=== PATIENT | male | born 1985 ===

== ENCOUNTER → 2020-03-17 15:14 | Outpatient (BNVA) | payer OTHER, SELFPAY | PROVIDERS: PCP Physician Assistant; Visit Provider Nurse Practitioner | DX: Z76.89 Persons encountering health services in other specified circumstances (principal) ==

== ENCOUNTER 2021-03-15 08:29 | Outpatient (REF) | payer OTHER, SELFPAY ==
--- NOTE | ~2021-03-15 | XR_ITS ---
EXAMINATION: XR LUMBOSACRAL SPINE CLINICAL INFORMATION: Low back pain and right-sided sciatica COMPARISON: Previous lumbar spine x-ray June 2017 and MRI August 2017 TECHNIQUE: Three views of the lumbosacral spine. FINDINGS: Bone alignment is normal. No fracture or dislocation is seen. There is postsurgical change with disc interspacer. There appears to be ankylosis at the L5-S1 disc space. Disc spaces are otherwise normal. Paraspinal soft tissues are normal. XR/XR lumbar spine 2-3V IMPRESSION: Postsurgical change at L5-S1.
[2021-03-15 09:36] LABS: Estimated Average Glucose 105 mg/dL; Hemoglobin A1c % 5.3 %
[2021-03-15 10:01] LABS: Alanine Aminotransferase 23 U/L (0-40); Albumin Level 4.5 g/dL (3.5-5.0); Alkaline Phosphatase 64 U/L (39-117); Anion Gap 11 (12-20); Aspartate Amino Transferase 21 U/L (5-37); Bilirubin Total 0.4 mg/dL (0.0-1.0); Blood Urea Nitrogen 13 mg/dL (9-16); Calcium 9.6 mg/dL (8.4-10.2); Carbon Dioxide 28 mmol/L (22-29); Chloride 105 mmol/L (96-108); Cholesterol 203 mg/dL; Estimated Glomerular Filt Rate > 60; Glucose Fasting 107 mg/dL (60-99); HDL Cholesterol 24 mg/dL; Sodium 140 mmol/L (135-145); Total Protein 7.1 g/dL (6.5-8.0); Triglycerides 405 mg/dL
[2021-03-15 10:14] LABS: TSH reflex Free T4 1.62 uIU/mL (0.32-4.0)
== END 2021-03-15 08:30 | disposition home or self-care (01) ==
LOC: HO.XRAY 08:29
PROVIDERS: PCP Physician Assistant; Visit Provider Physician Assistant
DX: Z13.220 Encounter for screening for lipoid disorders (principal); Z13.29 Encounter for screening for other suspected endocrine disorder; M51.9 Unspecified thoracic, thoracolumbar and lumbosacral intervertebral disc disorder
CPT/HCPCS: 36415; 72100; 80053; 80061; 83036; 84443

== ENCOUNTER 2022-01-05 11:51 | Outpatient (REF) | payer OTHER, SELFPAY ==
--- NOTE | ~2022-01-05 | XR_ITS ---
EXAMINATION: XR LUMBOSACRAL SPINE WITH OBLIQUES CLINICAL INFORMATION: Status post lumbosacral fusion. COMPARISON: None TECHNIQUE: AP, both oblique, and lateral views of the lumbar spine. Lateral view of the lumbosacral junction. FINDINGS: Vertebral body heights and alignment are normal. There is solid fusion at L5-S1, with intact disc spacer. The remaining disc spaces are well-maintained. There is no acute fracture or spondylolisthesis. The posterior elements are intact. No spondylolysis defect is seen on the oblique views. The paravertebral soft tissues are unremarkable. XR/XR lumbar spine 4V min IMPRESSION: There is well-maintained alignment status-post L5-S1 fusion.
== END 2022-01-05 11:52 | disposition home or self-care (01) ==
LOC: HO.XRAY 11:51
PROVIDERS: PCP Physician Assistant; Visit Provider Physician Assistant
DX: M51.9 Unspecified thoracic, thoracolumbar and lumbosacral intervertebral disc disorder (principal)
CPT/HCPCS: 72110

== ENCOUNTER 2022-09-06 15:45 | Outpatient (REF) | payer OTHER, SELFPAY ==
--- NOTE | ~2022-09-06 | XR_ITS ---
EXAMINATION: XR KNEE, LEFT CLINICAL INFORMATION: M25.562 - Pain in left knee COMPARISON: None available. TECHNIQUE: Standing AP and lateral views of the left knee are obtained. FINDINGS: No fracture, dislocation, or destructive process. Normal bony mineralization. No definite joint narrowing. No subchondral sclerosis or erosive change or chondrocalcinosis. No suprapatellar effusion. Hoffa's fat pad appears normal and the deep infrapatellar recess is preserved. XR/XR knee LT 2V IMPRESSION: Unremarkable left knee.
== END 2022-09-06 15:46 | disposition home or self-care (01) ==
LOC: HO.XRAY 15:45
PROVIDERS: PCP Physician Assistant; Visit Provider Physician Assistant
DX: M25.562 Pain in left knee (principal)
CPT/HCPCS: 73560

== ENCOUNTER 2023-11-20 15:25 | Outpatient (AMB) | payer OTHER, SELFPAY ==
--- NOTE | 2023-11-20 15:27 | A.OFFPC_ITS ---
Vital Signs 11/20/23 15:28 Height 6 ft 1 in Weight 229 lb 6 oz BMI 30.3 BP 106/66 Blood Pressure Location Lt brachial Position Sitting Pulse 78 Pulse Source Pulse Oximeter Pulse Oximetry (%) 97 Oxygen Delivery Method Room Air Intake Visit Reasons: Annual Exam Intake Note: Patient is here today for a physical. Sack Sorter Required: No Accompanied by: Self / Same As Patient Allergies No Known Allergies Allergy (Verified 11/20/23 15:48) Medication List - Last Reconciled 11/20/23 by Francisco Monsivais PA-C nicotine 1 patch transdermal DAILY 14 days Tobacco use date assessed: 11/20/23 Dental Screening Dental Screen Date: 11/20/23 Did you have a dental visit in the last 12 months?: No Did you have a dental problem in the last 6 months where you did not have access to dental care?: No Was dental information given to patient?: Patient has dentist HPI Annual Exam HPI Details Patient is a 38 year male here today for annual physical.? Patient is a 38-year-old male with a past medical history significant hypertriglyceridemia, lumbar spondylosis status post discectomy GERD, obesity. Concern--> reports having chronic left heel and ankle pain and swelling. He does report having an injury to his left ankle while playing basketball years ago. He is never taking care of his ankle wearing any supportive ankle brace while being physically active. Also reports having the sensation of incomplete bladder emptying when urinating. He reports his urination flow is chest fine though during the end of micturition he feels the need that he needs to empty his bladder more. .... Hypertriglyceridemia: Has had history of high triglycerides and was to work on lifestyle modifications to help reduce his triglycerides. Has not had his lip ids taking quite a while in promises to do so fasting. Will consider triglyceride lowering medication if triglycerides are above 500 to reduce risk pancreatitis Lumbar spondylosis: Patient has a history of lumbar spine surgery in 2019 that was somewhat successful though continues to have pain in his lower back to when he tries become more physically active. 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 At this time on blood because of his back per patient. He does use [id number] NSAIDs and muscle relaxers on a p.r.n. basis. He would like to see pain management as his chronic low back pain does hinder him going to the gym. He would like other pain reduction modalities. Vaccines:? UTD tetanus, COVID vac. Laboratory Tests 03/15/21 08:42 Triglycerides 405 Cholesterol 203 PFSH Medical History H. pylori infection Surgical History History of back surgery Family History Father No problems noted. Mother Thyroid condition Sister Diabetes Epileptic seizure Kidney damage Social History (Updated 11/20/23 @ 15:53 by Francisco Monsivais PA-C) Housing: Apartment Alcohol intake: current Alcohol intake frequency: a few times a month Alcohol type: beer Patient Tobacco Use Status: Current everyday Tobacco user Cigarettes Per Day: 10 e-Cigarette/Vaping Use: Never Used Second Hand Smoke Exposure: No service: No Current occupational status: unemployed Current occupation: Cognitive needs: No Hearing needs: No Vision needs: Yes (glasses) Questionnaire PHQ-9 Over the last 2 weeks, how often have you been bothered by any of the following problems? 1. Little interest or pleasure in doing things: not at all 2. Feeling down, depressed, or hopeless: not at all 3. Trouble falling or staying asleep, or sleeping too much: not at all 4. Feeling tired or having little energy: not at all 5. Poor appetite or overeating: not at all 6. Feeling bad about yourself - or that you are a failure or have let yourself or your family down: not at all 7. Trouble concentrating on things, such as reading the newspaper or watching television: not at all 8. Moving or speaking so slowly that other people could have noticed. Or the opposite - being so fidgety or restless that you have been moving around a lot more than usual: not at all 9. Thoughts that you would be better off or of hurting yourself in some way: not at all Total score: 0 Depression Screening Interpretation: Negative Depression Screening Done: Yes 98197 - PHQ-9 Billing: Yes Source: Developed by Drs. Willard Montemayor, Dione Schneidre, Thomas Ernst and colleagues, with an educational mac from [employer]. Thrive Questionnaire Date Thrive assessed: 11/20/23 I am a: Patient What is your living situation today?: I have a steady place to live Within the past 12 months, did the food you bought not last and you didn't have the money to get more?: Never true Within the past 12 months, did you worry whether your food would run out before you got money to buy more?: Never true Do you have trouble paying for medicines?: No Do you have trouble getting transportation to medical appointments?: No Do you have trouble paying your heating and electricity bill?: No Do you have trouble taking care of your child, family member or friend?: No Do you have trouble with day-to-day activities such as bathing, preparing meals, shopping, managing finances, etc.?: No Are you currently unemployed and looking for a job?: No Are you interested in more education?: No Please select the resources that you would like help with: None Currently or been in a relationship where the following occur: No concerns reported THRIVE Score: 0 AUDIT C Alcohol Use Questionnaire (AUDIT-C) 1. How often do you have a drink containing alcohol?: 2-3 times a week 2. How many drinks containing alcohol do you have on a typical day when you are drinking?: 10 or more 3. How often do you have six or more drinks on one occasion?: Weekly Total Score: 10 CELINE-7 AMB Questionnaire CELINE-7 Date CELINE - 7 assessed: 11/20/23 Feeling nervous, anxious, or on edge: 0 = Not at all Not being able to stop or control worryin = Not at all Worrying too much about different things: 0 = Not at all Trouble relaxin = Not at all Being so restless that it is hard to sit still: 0 = Not at all Becoming easily annoyed or irritable: 0 = Not at all Feeling afraid as if something awful might happen: 0 = Not at all Total CELINE-7 score (0-4 normal; 5-9 mild; 10-14 moderate; 15-21 severe): 0 Source: Developed by Drs. Willard Montemayor, Dione Schneider, Thomas Ernst and colleagues, with an educational mac from [employer]. CELINE-7 Assessment Billing CELINE-7 Assessment Tool: CELINE-7 Assessment 54633 Review of Systems Const Denies body aches, Denies chills, Denies excessive sweating, Denies fatigue, Denies fever(s) and Denies headache(s) Eyes Denies blurry vision ENT Denies dysphagia, Denies vertigo, Denies dizziness, Denies headache(s), Denies hearing loss and Denies tinnitus Card Denies chest pain, Denies chest pain with activity, Denies syncope, Denies irregular heart rhythm and Denies dyspnea Resp Denies chest congestion, Denies cough, Denies hemoptysis, Denies dyspnea and Denies wheezing GI Denies abdominal pain, Denies melena, Denies hematochezia, Denies coffee ground emesis, Denies dysphagia, Denies diarrhea, Denies nausea and Denies vomiting Denies difficulty urinating, Denies dysuria, Denies urinary frequency, Denies urinary hesitancy and Denies urinary urgency Musc Denies arthralgias, Denies limited range of motion, Denies muscle cramps and Denies muscle weakness Skin/Breast Denies rash and Denies skin ulcer Neuro Denies Abnormal speech present, Denies confusion, Denies vertigo, Denies dizziness, Denies syncope, Denies headache(s), Denies memory loss and Denies seizure-like activity Psych Denies anxiety, Denies confusion, Denies depression, Denies memory loss, Denies panic attacks and Denies paranoia Endo Denies excessive sweating, Denies fatigue, Denies flushing, Denies polydipsia and Denies polyuria Aller/Immun Denies wheezing Physical exam (Primary Care) Vital Signs: Last Vital Signs Pulse 78 11/20/23 15:28 BP 106/66 11/20/23 15:28 Pulse Ox 97 11/20/23 15:28 Oxygen Delivery Method Room Air 11/20/23 15:28 BMI result Body Mass Index 30.3 Tobacco/Smoking Status: Tobacco use Status Tobacco use date assessed 11/20/23 11/20/23 15:40 Patient Tobacco Use Status Current everyday Tobacco 11/20/23 15:53 e-Cigarette/Vaping Use Never Used 11/20/23 15:53 Are you ready to quit: Yes Tobacco cessation counseling provided: Yes Items discussed: Nicotine replacement Relapse Prevention: discussed the importance of a supportive environment, discussed negative mood or depression after quitting, weight gain after smoking is common and discussed dietary, exercise and/or lifestyle changes Number of minutes spent counselin CPT code: 96440 - 4-10 Minutes PHQ-9: PHQ-9 Score PHQ-9: Total score 0 11/20/23 16:02 Depression Screening Interpretation: Negative Thrive Assessment: Date of Thrive Assessment Date Thrive assessed 11/20/23 11/20/23 15:40 Currently or been in a relationship where the following occur: No concerns reported Const General: cooperative, comfortable, no acute distress, alert and awake; No confusion Orientation/consciousness: oriented to person, oriented to place, patient oriented x3 and No confusion HENMT Head: Yes normocephalic Ears: external ears normal and TM's normal bilaterally Face and sinus: No sinus tenderness Mouth: Normal oral and palatal mucosa present and tongue normal Teeth and gingiva: dentition normal and gingiva normal Throat: Yes posterior oropharynx normal, Yes tonsils normal and Yes uvula midline Eyes Conjunctivae: conjunctivae normal Sclerae: sclerae normal Pupils: Equal, round and reactive pupils present EOM: EOMs intact bilaterally Direct Ophthalmoscopy: No no photophobia Neck Neck: Yes no lymphadenopathy, No tender and Yes no JVD Thyroid: Thyroid normal Carotids: no bruits Chest Chest palpation & inspection: no tenderness Resp Effort & Inspection: normal respiratory effort, no audible wheezes, not labored and no stridor Auscultation: no crackles, no rales, no rhonchi and no wheezes Cardio Jugular venous distension: no JVD Rate: regular rate, not bradycardic and not tachycardic Rhythm: regular rhythm Bruits: no carotid bruits Peripheral pulses: Peripheral pulses 2+ throughout GI Inspection: Yes normal to inspection, No abdominal wall ecchymosis and No visible herniation Palpation (GI): Soft to palpation, nontender, no guarding, not rigid and No hepatosplenomegaly present Auscultation: normoactive bowel sounds General: Yes no CVA tenderness Back/Spine/Pelvis Back: no CVA tenderness and No back tenderness Cervical Spine: cervical ROM normal Thoracic/Lumbar Spine: thoracic and lumbar spine normal to inspection, straight leg raise negative bilaterally, No thoraco-lumbar ROM limited and No lumbar spinal tenderness Skin Lesions: no lesions Rashes: no rashes Wounds: no wounds Neuro General: oriented to person, oriented to place, patient oriented x3, CN's II-XI intact bilaterally and No confusion Cranial nerves: Yes Equal, round and reactive pupils present and Yes Normal accommodation reflex present Cognition (Neuro): normal cognition Speech: No Abnormal speech present Gait exam (Neuro): Normal gait present Motor exam (neuro): 5/5 motor strength present throughout Extrem Right upper extremity: full ROM; no cyanosis Left upper extremity: full ROM; no cyanosis Right lower extremity: no edema Left lower extremity: no edema Psych Appearance: grossly normal Mental Status: mental status grossly normal Affect: normal affect Attitude: cooperative Thought process: Normal thought process present Assessment and Plan Assessment & Plan (1) Annual physical exam: Code(s): Z00.00 - Encounter for general adult medical examination without abnormal findings (2) Hypertriglyceridemia: Code(s): E78.1 - Pure hyperglyceridemia Plan: Patient has a history of elevated triglycerides. He admits he has not been working on his lifestyle modifications on reducing high triglyceride foods. Advised to start doing so in check his lipids when fasting mikey. goal Triglyceride to be below 250 though will consider starting medication at 500 above. (3) Lumbar disc disease: Code(s): M51.9 - Unspecified thoracic, thoracolumbar and lumbosacral intervertebral disc disorder Plan: As per HPI patient has a long history of lumbar spine pain due to degenerative disc disease in her is lumbar spine. Had lumbar spine surgery in 2019 which was fairly successful though continues to have pain intermittently especially when being physically active. He denies any radicular symptoms down lower extremities.. 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 Will supply patient with ibuprofen 800s in tizanidine 4 mg to use on a p.r.n. basis for low back pain (4) Pain of left heel: Code(s): M79.672 - Pain in left foot (5) Left ankle pain: Code(s): M25.572 - Pain in left ankle and joints of left foot Qualifiers: Chronicity: chronic Qualified Code(s): M25.572 - Pain in left ankle and joints of left foot; G89.29 - Other chronic pain (6) Tobacco use disorder: Code(s): F17.200 - Nicotine dependence, unspecified, uncomplicated Plan: He does understand he needs to quit smoking. He is willing to try nicotine patches in a stepwise therapy to help him quit as it has been helpful in the past. (7) Incomplete bladder emptying: Code(s): R33.9 - Retention of urine, unspecified Plan: Patient does report having some sensation of incomplete bladder emptying. During micturition feels his urination stops flow and he has a sensation of the need to continue evacuating his bladder. Will supply patient with tamsulosin for symptom management. Will consider Urology evaluation Orders: Orders Lipid Panel 11/20/23 E78.1 - Pure hyperglyceridemia Comprehensive [place]. Panel Fast 11/20/23 E78.1 - Pure hyperglyceridemia Complete Blood Count no Diff 11/20/23 E78.1 - Pure hyperglyceridemia XR lumbar spine 4V min 11/20/23 M51.9 - Unspecified thoracic, thoracolumbar and lumbosacral intervertebral disc disorder XR ankle LT min 3V Today G89.29 - Other chronic pain, M25.572 - Pain in left ankle and joints of left foot XR calcaneus LT min 2V Today M79.672 - Pain in left foot Referrals Pain Management Referral M51.9 - Unspecified thoracic, thoracolumbar and lumbosacral intervertebral disc disorder Podiatry Referral M79.672 - Pain in left foot Medications: New ibuprofen 800 mg PO Q8H 30 days 90 tabs 0RF M51.9 - Unspecified thoracic, thoracolumbar and lumbosacral intervertebral disc disorder tizanidine 4 mg PO BEDTIME 30 days 30 caps 0RF muscle spasticity M51.9 - Unspecified thoracic, thoracolumbar and lumbosacral intervertebral disc disorder tamsulosin 0.4 mg PO DAILY 90 caps 1RF R33.9 - Retention of urine, unspecified nicotine 1 patch transdermal Q24H 28 days 28 ea 0RF F17.200 - Nicotine dependence, unspecified, uncomplicated nicotine 1 patch transdermal DAILY 28 days 28 ea 0RF F17.200 - Nicotine dependence, unspecified, uncomplicated, M51.9 - Unspecified thoracic, thoracolumbar and lumbosacral intervertebral disc disorder Refilled nicotine 1 patch transdermal DAILY 14 days 14 ea 0RF F17.200 - Nicotine dependence, unspecified, uncomplicated Coding Level of Care Code Est Pt Prev Care 18-39y(17659) Diagnoses Annual physical exam Z00.00 Hypertriglyceridemia E78.1 Lumbar disc disease M51.9 Pain of left heel M79.672 Chronic pain of left ankle M25.572; G89.29 Chronicity: chronic Tobacco use disorder F17.200 Incomplete bladder emptying R33.9 Additional Codes CELINE-7 Assessment Billing - CELINE-7 Assessment Tool: CELINE-7 Assessment 36855 ([id number]) Vital Signs *Quality* - CPT code: 68434 - 4-10 Minutes ([id number])
[2023-11-20 15:28] VITALS: BP 106/66; PULSE 78; O2SAT 97; BMI 30.3
== END 2023-11-20 16:09 | disposition home or self-care (01) ==
PROVIDERS: PCP Physician Assistant; Visit Provider Physician Assistant
DX: Z00.00 Encounter for general adult medical examination without abnormal findings (principal); E78.1 Pure hyperglyceridemia; M51.9 Unspecified thoracic, thoracolumbar and lumbosacral intervertebral disc disorder; F17.210 Nicotine dependence, cigarettes, uncomplicated; M79.672 Pain in left foot; M25.572 Pain in left ankle and joints of left foot; G89.29 Other chronic pain; R33.9 Retention of urine, unspecified
CPT/HCPCS: 99395; 99406

== ENCOUNTER 2023-11-30 08:59 | Outpatient (REF) | payer OTHER, SELFPAY ==
--- NOTE | ~2023-11-30 | XR_ITS ---
EXAMINATION: XR ANKLE, LEFT XR CALCANEUS, LEFT CLINICAL INFORMATION: Left foot pain at the calcaneus x days and ankle x years. COMPARISON: None TECHNIQUE: AP, lateral, and mortise views of the left ankle. Lateral and axial views of the left calcaneus. FINDINGS: Left ankle: Chronic appearing osseous fragment is present at the anterior margin of the lateral malleolus, most consistent with an avulsion fracture. Ankle mortise is symmetric. No acute fracture or malalignment. Bone mineralization is normal. Mild soft tissue swelling. Left ankle: No fracture or malalignment. Bone mineralization is normal. Joint spaces appear well-preserved. Small enthesopathic spur is present at the Achilles tendon insertion on the calcaneus. XR/XR calcaneus LT min 2V IMPRESSION: 1. Chronic appearing avulsion fracture at the anterior margin of the lateral malleolus. No acute fracture or malalignment. 2. Small enthesopathic spur at the Achilles tendon insertion on the calcaneus.
--- NOTE | ~2023-11-30 | XR_ITS ---
EXAMINATION: XR ANKLE, LEFT XR CALCANEUS, LEFT CLINICAL INFORMATION: Left foot pain at the calcaneus x days and ankle x years. COMPARISON: None TECHNIQUE: AP, lateral, and mortise views of the left ankle. Lateral and axial views of the left calcaneus. FINDINGS: Left ankle: Chronic appearing osseous fragment is present at the anterior margin of the lateral malleolus, most consistent with an avulsion fracture. Ankle mortise is symmetric. No acute fracture or malalignment. Bone mineralization is normal. Mild soft tissue swelling. Left ankle: No fracture or malalignment. Bone mineralization is normal. Joint spaces appear well-preserved. Small enthesopathic spur is present at the Achilles tendon insertion on the calcaneus. XR/XR ankle LT min 3V IMPRESSION: 1. Chronic appearing avulsion fracture at the anterior margin of the lateral malleolus. No acute fracture or malalignment. 2. Small enthesopathic spur at the Achilles tendon insertion on the calcaneus.
--- NOTE | ~2023-11-30 | XR_ITS ---
EXAMINATION: XR LUMBOSACRAL SPINE WITH OBLIQUES CLINICAL INFORMATION: Unspecified thoracic, thoracolumbar and lumbosacral intervertebr... COMPARISON: 01/05/2022 TECHNIQUE: AP, both oblique, and lateral views of the lumbar spine. Lateral view of the lumbosacral junction. FINDINGS: Solid osseous bridging across the interbody space at L5-S1. Vertebral body heights are normal. Mild facet arthropathy at L4-L5. SI joints are unremarkable. Intervertebral disc heights appear relatively well-preserved. No fracture or malalignment. XR/XR lumbar spine 4V min IMPRESSION: 1. Solid osseous bridging across the interbody space at L5-S1. 2. Mild facet arthropathy at L4-L5.
[2023-11-30 09:52] LABS: Hematocrit 41.9 % (42.0-52.0); Hemoglobin 14.8 g/dl (14.0-18.0); Mean Corpuscular HGB Conc 35.3 g/dl (31.0-36.0); Mean Corpuscular Hemoglobin 32.5 pg (27.0-33.0); Mean Corpuscular Volume 92.1 fL (80.0-98.0); Mean Platelet Volume 10.2 fL (9.4-12.4); Platelet Count 157 X10*3/uL (160-400); Red Blood Count 4.55 X10*6/uL (4.60-5.80); Red Cell Distribution Width 12.5 % (11.0-16.0); White Blood Count 4.9 X10*3/uL (4.8-10.8)
[2023-11-30 10:24] LABS: Alanine Aminotransferase 19 U/L (0-40); Albumin Level 4.5 g/dL (3.5-5.0); Alkaline Phosphatase 71 U/L (39-117); Anion Gap 11 (12-20); Aspartate Amino Transferase 21 U/L (5-37); Bilirubin Total 0.4 mg/dL (0.0-1.0); Blood Urea Nitrogen 13 mg/dL (9-16); Calcium 9.1 mg/dL (8.4-10.2); Carbon Dioxide 25 mmol/L (22-29); Chloride 111 mmol/L (96-108); Cholesterol 209 mg/dL (<200); Estimated Glomerular Filt Rate > 60; Glucose Fasting 103 mg/dL (60-99); HDL Cholesterol 33 mg/dL (>40); LDL Cholesterol Calculated 154 mg/dL (<100); Sodium 143 mmol/L (135-145); Triglycerides 112 mg/dL (<150)
== END 2023-11-30 09:00 | disposition home or self-care (01) ==
LOC: HO.XRAY 08:59
PROVIDERS: PCP Physician Assistant; Visit Provider Physician Assistant
DX: M79.672 Pain in left foot (principal); E78.1 Pure hyperglyceridemia; M51.9 Unspecified thoracic, thoracolumbar and lumbosacral intervertebral disc disorder; M25.572 Pain in left ankle and joints of left foot; G89.29 Other chronic pain
CPT/HCPCS: 36415; 72110; 73610; 73650; 80053; 80061; 85027

== ENCOUNTER 2023-12-07 11:01 | Outpatient (AMB) | payer OTHER, SELFPAY ==
--- NOTE | 2023-12-07 11:06 | MHC.OFFVIS ---
Vital Signs 12/07/23 11:07 Height 6 ft 1 in Weight 228 lb BMI 30.1 BP 120/71 Blood Pressure Location Rt brachial Position Sitting Pulse 63 Pulse Source Pulse Oximeter Pulse Oximetry (%) 96 Oxygen Delivery Method Room Air Intake Visit Reasons: Chronic Lower Lumbar Spine Pain Allergies No Known Allergies Allergy (Verified 12/07/23 11:09) Medication List - Last Reconciled 12/07/23 by Shelly Haji ibuprofen 800 mg PO Q8H 30 days nicotine 1 patch transdermal Q24H 28 days nicotine 1 patch transdermal DAILY 14 days nicotine 1 patch transdermal DAILY 28 days tamsulosin 0.4 mg PO DAILY tizanidine 4 mg PO BEDTIME 30 days HPI Comments Details: Harsha is a very pleasant 30-year-old male who presents to the office today for evaluation and management of his chronic right lower back pain He has been suffering with this pain for greater than 5 years. Underwent L5-S1 fusion in 2019 for this pain. At that time he was also having pain that radiated down the right leg. Since surgery he has no longer suffering with the radicular pain. But the midline axial pain persists. He is completed physical therapy in the past without improvement of his pain. Has been taking ibuprofen and muscle relaxers with minimal improvement. No relief with heat, ice or topical lidocaine patches. He underwent cortisone injections before and after surgery with no improvement of his pain. Denies radiation of pain down either lower extremity. Denies red flag symptoms including new loss of bowel, bladder or saddle anesthesia. Pain is exacerbated by bending, twisting, moving. In terms of muscle damage condition is described as aching, stabbing, sharp, shooting. Pain is negatively impacting patient's general activity, movement of life, recreational activities and work. Denies implantable devices, pacemaker defibrillator Denies use of anticoagulants Endorses social alcohol use and current daily cigarette smoker [facility] Medical History H. pylori infection Surgical History History of back surgery Family History Father No problems noted. Mother Thyroid condition Sister Diabetes Epileptic seizure Kidney damage Social History Housing: Apartment Alcohol intake: current Alcohol intake frequency: a few times a month Alcohol type: beer Patient Tobacco Use Status: Current everyday Tobacco user Cigarettes Per Day: 10 e-Cigarette/Vaping Use: Never Used Second Hand Smoke Exposure: No service: No Current occupational status: unemployed Current occupation: Cognitive needs: No Hearing needs: No Vision needs: Yes (glasses) Review of Systems Const All systems reviewed & are unremarkable except as noted in HPI and below Physical Exam Vital Signs: Last Vital Signs Pulse 63 12/07/23 11:07 BP 120/71 12/07/23 11:07 Pulse Ox 96 12/07/23 11:07 Oxygen Delivery Method Room Air 12/07/23 11:07 BMI result Body Mass Index 30.1 General: awake, alert, oriented. Answers questions appropriately. Fully engaged in examination. Skin: warm, dry, intact HEENT: Normocephalic. Hearing intact. Cardiac: External chest normal in appearance. Respiratory: No cough, audible wheezing or stridor. Abdomen: without gross distension. MS: No obvious swelling or deformities. Able to stand on bilateral tiptoes and bilateral heels.? Able to transition from sit to stand unassisted. Ambulates with bilaterally normal heel strike and toe off Bilateral lower extremity strength 5/5 SLR negative bilaterally Negative footdrop negative clonus Nontender over bilateral PSIS Tenderness to right paraspinal muscles and right midline lumbar vertebrae Facet loading positive Gaenslen negative Thigh thrust negative SI compression negative Lumbar range of motion intact, pain with forward flexion at 70 degrees Neurological: Oriented to person, place, time and situation. Thought process intact. No gait abnormalities appreciated. Psychiatric: Appropriate mood and affect. Good judgment and insight. Results Reviewed Results Reviewed: 11/30/23 x-ray lumbar spine results pending 09/06/2022 XR LS FINDINGS: Vertebral body heights and alignment are normal. There is solid fusion at L5-S1, with intact disc spacer. The remaining disc spaces are well-maintained. There is no acute fracture or spondylolisthesis. The posterior elements are intact. No spondylolysis defect is seen on the oblique views. The paravertebral soft tissues are unremarkable. IMPRESSION: There is well-maintained alignment status-post L5-S1 fusion. Assessment & Plan Assessment & Plan (1) Lumbar spondylosis: Code(s): M47.816 - Spondylosis without myelopathy or radiculopathy, lumbar region Category: Medical (2) Post laminectomy syndrome: Code(s): M96.1 - Postlaminectomy syndrome, not elsewhere classified Category: Medical Plan Manual is a very pleasant 30-year-old male who presented to the office today for evaluation and management of his chronic lower back pain History, physical exam and provocative testing consistent with lumbar spondylosis and with laminectomy syndrome Patient has failed conservative therapy including PT, nonsteroidal anti-inflammatory medications, muscle relaxers and previous attempts at steroid injections. Discussed options for treatment including diagnostic interventional testing, epidural steroid injections, peripheral nerve stimulation with Sprint, RFA and more permanent neuromodulation. Informational pamphlets provided. Discontinue ibuprofen, new Rx for celecoxib 50 mg p.o. twice daily. Advised on cautions for use. Do not take with other nonsteroidal anti-inflammatory medications Will schedule for fluoroscopy guided right diagnostic L3-L4 DR L5 medial branch blocks with local anesthetic. If patient reports positive results will plan for right L5 medial branch Sprint PNS All questions and concerns have been answered and patient agrees with the plan. Follow up after injections and sooner if needed. Medications: New celecoxib Discontinue ibuprofen. Do not take with any other nonsteroidal anti-inflammatory medications. 50 mg PO BID 60 caps 0RF Discontinued ibuprofen Discontinued Reason: Doctor's Order 800 mg PO Q8H 30 days 90 tabs 0RF M51.9 - Unspecified thoracic, thoracolumbar and lumbosacral intervertebral disc disorder Coding Level of Care Code New Pt Level 4 (16864) Diagnoses Lumbar spondylosis M47.816 Post laminectomy syndrome M96.1
[2023-12-07 11:07] VITALS: BP 120/71; PULSE 63; O2SAT 96; BMI 30.1
== END 2023-12-07 11:47 | disposition home or self-care (01) ==
PROVIDERS: PCP Physician Assistant; Referring Provider Physician Assistant; Visit Provider Registered Nurse Emergency
DX: M47.816 Spondylosis without myelopathy or radiculopathy, lumbar region (principal); M96.1 Postlaminectomy syndrome, not elsewhere classified
CPT/HCPCS: 99204

== ENCOUNTER → 2023-12-07 11:01 | Outpatient (BNVA) | payer OTHER, SELFPAY | PROVIDERS: PCP Physician Assistant; Referring Provider Physician Assistant; Visit Provider Registered Nurse Emergency | DX: M47.816 Spondylosis without myelopathy or radiculopathy, lumbar region (principal); M96.1 Postlaminectomy syndrome, not elsewhere classified; M51.9 Unspecified thoracic, thoracolumbar and lumbosacral intervertebral disc disorder | CPT/HCPCS: 99202 ==